=== PATIENT | male | born 1950 | race Caucasian/White ===

== ENCOUNTER 2016-10-01 15:00 | Outpatient (RCR) | payer OTHER | END 2016-10-22 | disposition home or self-care (01) | LOC: PTY 15:00 | DX: L98.9 Disorder of the skin and subcutaneous tissue, unspecified (principal) ==

== ENCOUNTER 2016-10-25 14:00 | Outpatient (RCR) | payer OTHER | END 2016-11-19 | disposition home or self-care (01) | LOC: PTY 14:00 | DX: L98.9 Disorder of the skin and subcutaneous tissue, unspecified (principal) | CPT/HCPCS: 97110; 97140; G8978; G8979 ==